=== PATIENT | female | born 1980 | race Caucasian/White ===

== ENCOUNTER 2022-01-19 13:24 | Emergency (ER) | payer OTHER ==
[~2022-01-19] VITALS: Ht 165.1 cm; Wt 74.5 kg
[2022-01-19] MEDS ORDERED: VENL-37 PO (13:40)
[2022-01-19] MEDS ORDERED: MULT1TAB8 PO (13:40)
[2022-01-19] MEDS ORDERED: guaiFENesin ER 600 MG TAB PO ONE (14:10)
[2022-01-19] MEDS ORDERED: ALBUTEROL SULFATE 2.5 MG/0.5 ML INH NEB SOLN NEB ONE (14:10)
[2022-01-19 14:49] LABS: BASO # 0.1 10^3/uL (0.0-0.2); BASO % 0.6 % (0.0-1.0); EOS # 0.2 10^3/uL (0.0-0.5); EOS % 2.6 % (0.0-3.0); HEMOGLOBIN 13.7 g/dl (12.0-15.5); LYMPH # 1.9 10^3/uL (1.5-5.0); LYMPH % 23.6 % (24.0-44.0); MEAN CORPUSCULAR HEMOGLOBIN 30.2 pg (27.0-33.0); MEAN CORPUSCULAR HGB CONC 32.6 g/dl (32.0-36.5); MEAN CORPUSCULAR VOLUME 92.7 fl (80.0-96.0); MONO # 0.6 10^3/uL (0.0-0.8); NEUTROPHILS # 5.2 10^3/uL (1.5-8.5); NEUTROPHILS % 66.1 % (36.0-66.0); PLATELET COUNT, AUTOMATED 210 10^3/uL (150-450); RED BLOOD COUNT 4.53 10^6/uL (4.00-5.40)
[2022-01-19 15:11] LABS: BLOOD UREA NITROGEN 7 MG/DL (7-18); CALCIUM LEVEL 9.2 MG/DL (8.5-10.1); CARBON DIOXIDE LEVEL 29 MEQ/L (21-32); CHLORIDE LEVEL 108 MEQ/L (98-107); CREATININE FOR GFR 0.68 MG/DL (0.55-1.30); GLOMERULAR FILTRATION RATE > 60.0 (>58); GLUCOSE, FASTING 81 MG/DL (70-100); POTASSIUM SERUM 3.7 MEQ/L (3.5-5.1); SODIUM LEVEL 143 MEQ/L (136-145)
[2022-01-19] MEDS ORDERED: BENZONATATE 100MG CAPSULE PO ONE (16:05)
[2022-01-19] MEDS ORDERED: PROAAER10 INH (17:01)
[2022-01-19] MEDS ORDERED: BENZ200C70 PO (17:01)
[2022-01-19 17:14] VITALS: BP 132/86
== END 2022-01-19 17:17 | disposition home or self-care (01) ==
LOC: M ED 13:24
DX: J06.9 Acute upper respiratory infection, unspecified (principal); R05.9 Cough, unspecified; Z98.84 Bariatric surgery status

== ENCOUNTER 2022-02-05 20:38 | Emergency (ER) | payer OTHER ==
[~2022-02-05] VITALS: Ht 167.6 cm; Wt 72.7 kg
[~2022-02-05 20:38] MED LIST: BENZ200C70 PO; MULT1TAB8 PO; PROAAER10 INH; VENL-37 PO
[2022-02-06] MEDS ORDERED: KETOROLAC TROMETHAMINE 10 MG TAB PO ONE (04:00)
[2022-02-06] MEDS ORDERED: FLUCONAZOLE 100 MG TAB PO ONE (04:00)
[2022-02-06] MEDS ORDERED: NITROFURANTOIN (MACROBID) 100 MG CAP PO ONE (04:00)
[2022-02-06] MEDS ORDERED: NITR100C2 PO (04:09)
[2022-02-06] MEDS ORDERED: KETO10TAB PO (04:09)
[2022-02-06] MEDS ORDERED: PYRI1TAB5 PO (04:19)
[2022-02-06] MEDS ORDERED: PHENAZOPYRIDINE 100 MG TAB PO ONE (04:20)
[2022-02-06 04:41] VITALS: BP 116/80
== END 2022-02-06 04:42 | disposition home or self-care (01) ==
LOC: M ED 20:38
DX: N39.0 Urinary tract infection, site not specified (principal); R51.9 Headache, unspecified; F32.A Depression, unspecified; Z98.84 Bariatric surgery status; Z79.899 Other long term (current) drug therapy; Z88.5 Allergy status to narcotic agent; Z88.6 Allergy status to analgesic agent